=== PATIENT | male | born 1960 | race American Indian/Alaskan Native ===

== ENCOUNTER 2020-12-02 16:11 | Inpatient (IN) | payer OTHER ==
--- NOTE | 2020-12-02 16:47 | Event Note ---
ED Screening Note Date of service: 12/02/20 Time: 16:45 ED Screening Note: Patient presents to the ER today with complaints of low blood pressure. Patient states his blood pressure has been running in in the 80s 90s systolic. He states he noticed this about 3 weeks ago. He reports feeling short of breath, near syncopal episodes, nausea and decreased appetite. He denies any black or bloody stools. He denies any vomiting. He states that he had a couple episodes of watery stools. He denies any abdominal pain or chest pain. He denies any illicit drug use or alcohol abuse. He states that he went to an ER in [place] when the symptoms first started he states that they treated him for infection in his throat but he did not have any lab work or imaging done. His past medical history significant for diabetes and hypertension. He states he stopped taking his lisinopril about 1 week ago Patient noted to be hypertensive and tachycardic in triage This initial assessment/diagnostic orders/clinical plan/treatment(s) is/are subject to change based on patients health status, clinical progression and re- assessment by fellow clinical providers in the ED. Further treatment and workup at subsequent clinical providers discretion. Patient/guardian urged not to elope from the ED as their condition may be serious if not clinically assessed and managed. Initial orders include: Chest pain order set
[2020-12-02] MEDS ORDERED: SODIUM CHLORIDE 0.9% 1000 ML 1,000 ML IV ONE ×2 (16:59→18:35)
[2020-12-02 17:01] LABS: Basophils % (Auto) 0.3 % (0.0-1.8); Eosinophils % (Auto) 0.2 % (0.0-4.3); Hematocrit 43.9 % (35.5-45.6); Hemoglobin 14.7 gm/dl (11.8-15.2); Lymphocytes # (Auto) 1.5 K/mm3 (1.2-5.4); Lymphocytes % (Auto) 13.6 % (13.4-35.0); Mean Corpuscular HGB Conc 34 % (32-34); Mean Corpuscular Volume 84 fl (84-94); Monocytes # (Auto) 0.7 K/mm3 (0.0-0.8); Monocytes % (Auto) 6.1 % (0.0-7.3); Platelet Count 222 K/mm3 (140-440); Red Blood Count 5.23 M/mm3 (3.65-5.03); Red Cell Distribution Width 15.3 % (13.2-15.2)
[2020-12-02 17:25] LABS: Creatine Kinase MB 1.7 ng/mL (0.0-4.0)
[2020-12-02 17:27] LABS: Alanine Aminotransferase 7 units/L (7-56); Albumin 4.3 g/dL (3.9-5); Calcium 9.6 mg/dL (8.4-10.2); Hemolysis Index 97
[2020-12-02 17:38] LABS: BUN/Creatinine Ratio 16; Blood Urea Nitrogen 177 mg/dL (9-20)
[2020-12-02] MEDS ORDERED: ALBUTEROL 2.5 MG/3 ML NEBU IH ONE (18:34)
[2020-12-02] MEDS ORDERED: INSULIN REGULAR, HUMAN 100 UNITS/1 ML IV ONE (18:34)
[2020-12-02] MEDS ORDERED: DEXTROSE 50% IN WATER (25GM) 50 ML SYRINGE IV ONE (18:34)
[2020-12-02] MEDS ORDERED: CALCIUM CHLORIDE 1,000 MG/10 ML SYRINGE IV ONE (18:35)
[2020-12-02] MEDS ORDERED: SODIUM POLYSTYRENE 15 GM/60 ML ORAL LIQD PO ONE ×2 (18:35→23:53)
--- NOTE | 2020-12-02 18:49 | Emergency Department Report ---
ED General Adult HPI - General Chief complaint: Dizziness Stated complaint: HYPOTENSIVE Time Seen by Provider: 12/02/20 18:17 Source: patient Mode of arrival: Ambulatory Limitations: No Limitations - History of Present Illness Initial comments: 60-year-old male, history of gout, hypertension, type 2 diabetes, presents to ED with hypotension. Patient states he has had a diagnosis of hypertension for quite some time now. Patient states he was prescribed lisinopril for it. Patient reports approximately 1 month ago, he was diagnosed with type 2 diabetes and placed on Metformin. Patient states since his diagnosis, he has been eating less food, trying to figure out what is healthy and what is not. Patient also reports he has not been drinking much water. He states 3 weeks ago he was seen in urgent care because he was feeling weak. States his blood pressure was in the 90s at that time. Patient states he has been checking his blood pressure at home since then and his systolic BP has been running in the 80s and 90s. Patient states last week he stopped taking his lisinopril because his blood pressure was so low. He reports feeling weak and dizzy, but denies any syncopal episodes. He also states that he had his 1st appointment with a new PCP last week. States he had blood work done at that time, but is supposed to receive the results sometime this week. Patient reports a decrease in urine output. He denies any history of renal failure. Patient has a history of arthritis in the hip, but states he has not been abusing NSAIDs. He states he takes an occasional Aleve. Patient reports decrease in urine output last week or so. He denies any tobacco, alcohol, drug use. Patient received his 1st Pfizer COVID-19 vaccine 3 weeks ago. He has not received the 2nd dose yet. -: week(s) (3) Quality: other (Painless) Consistency: intermittent Improves with: none Worsens with: none Associated Symptoms: weakness. denies: chest pain, cough, fever/chills, headaches, shortness of breath, syncope - Related Data Allergies Allergy/AdvReac Type Severity Reaction Status Date / Time codeine Allergy Hives Verified 12/02/20 16:31 ED Review of Systems ROS: Stated complaint: HYPOTENSIVE Other details as noted in HPI Comment: All other systems reviewed and negative Constitutional: denies: chills, fever Respiratory: denies: cough, shortness of breath Cardiovascular: denies: chest pain Gastrointestinal: nausea. denies: abdominal pain, vomiting, diarrhea ED Past Medical Hx - Past Medical History Previous Medical History?: No - Surgical History Past Surgical History?: No ED Physical Exam - General Limitations: No Limitations General appearance: alert, in no apparent distress - Head Head exam: Present: atraumatic, normocephalic - Eye Eye exam: Present: normal appearance, EOMI - ENT ENT exam: Present: mucous membranes moist - Neck Neck exam: Present: normal inspection - Respiratory Respiratory exam: Present: normal lung sounds bilaterally. Absent: respiratory distress - Cardiovascular Cardiovascular Exam: Present: normal rhythm, tachycardia - GI/Abdominal GI/Abdominal exam: Present: soft. Absent: distended, tenderness - Extremities Exam Extremities exam: Present: normal inspection - Neurological Exam Neurological exam: Present: alert, oriented X3 - Psychiatric Psychiatric exam: Present: normal affect, normal mood - Skin Skin exam: Present: warm, dry, intact, normal color ED Course Vital Signs 12/02/20 12/02/20 12/02/20 16:33 18:26 18:31 Temperature 97.9 F Pulse Rate 122 H 96 H 98 H Pulse Rate [ Throughout] Respiratory 12 13 20 Rate Respiratory Rate [ Throughout] Blood Pressure 114/68 Blood Pressure 75/48 [Right] O2 Sat by Pulse 95 100 Oximetry 12/02/20 12/02/20 12/02/20 18:45 19:01 19:15 Temperature Pulse Rate 94 H 92 H 106 H Pulse Rate [ Throughout] Respiratory 20 18 18 Rate Respiratory Rate [ Throughout] Blood Pressure 125/74 137/76 143/82 Blood Pressure [Right] O2 Sat by Pulse 100 100 100 Oximetry 12/02/20 12/02/20 12/02/20 19:31 19:45 20:01 Temperature Pulse Rate 91 H 96 H 111 H Pulse Rate [ Throughout] Respiratory 16 22 21 Rate Respiratory Rate [ Throughout] Blood Pressure 153/75 155/71 154/76 Blood Pressure [Right] O2 Sat by Pulse 100 99 100 Oximetry 12/02/20 12/02/20 12/02/20 20:14 20:15 20:31 Temperature Pulse Rate 110 H 112 H Pulse Rate [ 111 H Throughout] Respiratory 15 15 Rate Respiratory 15 Rate [ Throughout] Blood Pressure 140/85 143/88 Blood Pressure [Right] O2 Sat by Pulse 100 100 Oximetry 12/02/20 20:45 Temperature Pulse Rate Pulse Rate [ Throughout] Respiratory 20 Rate Respiratory Rate [ Throughout] Blood Pressure 122/80 Blood Pressure [Right] O2 Sat by Pulse 100 Oximetry - Consultations Consultation #1: 12/02/20 19:[address] Whitt, will consult on patient. Recommends 1 amp of bicarb IV and initiating bicarb drip at [address] Whitt states we will hold off on emergent dialysis at this time and try hyperkalemia protocol along with bicarb drip to see if acidosis and hyperkalemia will improve. If not, patient will need dialysis. ED Medical Decision Making - Lab Data Result diagrams: 12/02/20 16:41 12/02/20 22:52 - EKG Data -: EKG Interpreted by Me EKG shows normal: sinus rhythm, axis, intervals, QRS complexes, ST-T waves Rate: normal - EKG Data Interpretation: no acute changes - Radiology Data Radiology results: report reviewed, image reviewed - Medical Decision Making 60-year-old male presents ED with hypotension and new onset renal failure. Patient has a bicarb of 8 and also potassium of 8. BUN and creatinine are 177 and 10. Patient given 1 L bolus, with improvement of blood pressure from systolic in the 70s to systolic in the 110s. An additional 1 L bolus has been ordered. Patient has also been given insulin, D50, calcium gluconate, albuterol, Kayexalate for treatment of his hyperkalemia. After speaking with glass forming crew member, patient given 1 amp of bicarb and initiated on a bicarb drip. Patient will be admitted by hospitalist, Dr. Cevallos, for further management. - Differential Diagnosis Dehydration, renal failure, infection Critical Care Time: Yes Critical care time in (mins) excluding proc time.: 35 Critical care attestation.: If time is entered above; I have spent that time in minutes in the direct care of this critically ill patient, excluding procedure time. Critical Care Time: 35 min ED Disposition Clinical Impression: Acute renal failure, Hyperkalemia Hypotension Qualifiers: Hypotension type: other hypotension type Qualified Code(s): I95.89 - Other hypotension Disposition: -09 OP ADMIT IP TO THIS HOSP Is pt being admited?: Yes Condition: Stable Time of Disposition: 19:19
[2020-12-02] MEDS ORDERED: SODIUM BICARB 8.4% 50 MEQ/50 ML SYRINGE IV ONE (18:59)
[2020-12-02] MEDS ORDERED: CALCIUM GLUCONATE 1,000 MG in SODIUM CHLORIDE 0.9% 100 ML IV ONE (19:00)
[2020-12-02] MEDS ORDERED: ONDANSETRON 4 MG/2 ML INJ IV PRN (19:10)
[2020-12-02] MEDS ORDERED: ACETAMINOPHEN 325 MG TAB PO PRN (19:10)
[2020-12-02] MEDS ORDERED: ALBUTEROL 2.5 MG/3 ML NEBU IH PRN (19:10)
--- NOTE | 2020-12-02 19:13 | History and Physical Report ---
History of Present Illness Chief complaint: I feel weak and dizzy History of present illness: 60 YO Male with HTN, DM, Gout presents to ED for evaluation. Patient reports "I feel weak and dizzy". Patient states that he has experienced generalized weakness, dizziness over the past 2 weeks with intermittently worsening symptoms over the same timeframe. Patient was seen and evaluated by his primary care physician last week and was found to have hypotension. Patient acknowledges persistent symptoms after discontinuing antihypertensive medication. Patient transported to [facility] via private vehicle for further care and evaluation of the aforementioned symptoms. The patient was seen and evaluated in the emergency d [facility]. All lab and imaging studies reviewed. Patient found to have hypotension with a blood pressure of 75/48 in the emergency department. Patient also found to have end-stage renal disease, metabolic acidosis, as well as EKG changes secondary to hyperkalemia. Patient admitted to telemetry for further evaluation and monitoring. Nephrology team consulted in ED. Dialysis as per renal team. Patient denies fever, chills, chest pain, palpitation, productive cough, skin rash, recent ill contacts, or known exposure to COVID-19. Patient received first dose of Pfizer vaccine 3 weeks ago and is pending administration of second dose. No prior admission for review. No medication listed at time of admission for reconciliation. Past History Past Medical History: diabetes, ESRD, hypertension Past Surgical History: No surgical history, Other (reviewed) Social history: single. denies: smoking, alcohol abuse, prescription drug abuse Family history: diabetes, hypertension Medications and Allergies Allergies Allergy/AdvReac Type Severity Reaction Status Date / Time codeine Allergy Hives Verified 12/02/20 16:31 Active Meds: Active Medications Acetaminophen (Acetaminophen 325 Mg Tab) 650 mg PO Q4H PRN PRN Reason: Pain MILD(1-3)/Fever >100.5/RAMIREZ Albuterol (Albuterol 2.5 Mg/3 Ml Nebu) 2.5 mg IH Q4HRT PRN PRN Reason: Shortness Of Breath Sodium Chloride (Nacl 0.9% 1000 Ml) 1,000 mls @ 999 mls/hr IV BOLUS ONE Stop: 12/02/20 19:35 Sodium Bicarbonate 150 meq/ (Dextrose) 1,150 mls @ 100 mls/hr IV ONCE ONE Stop: 12/03/20 07:29 Ondansetron HCl (Ondansetron 4 Mg/2 Ml Inj) 4 mg IV Q8H PRN PRN Reason: Nausea And Vomiting Sodium Chloride (Sodium Chloride 0.9% 10 Ml Flush Syringe) 10 ml IV BID YOLANDA Sodium Chloride (Sodium Chloride 0.9% 10 Ml Flush Syringe) 10 ml IV PRN PRN PRN Reason: LINE FLUSH Review of Systems Constitutional: no weight loss, no weight gain, no fever, no chills Ears, nose, mouth and throat: no ear pain, no decreased hearing, no nose pain, no nasal congestion Cardiovascular: no chest pain, no orthopnea, no palpitations, no lightheadedness Respiratory: no cough, no excessive sputum, no hemoptysis Gastrointestinal: no abdominal pain, no nausea, no vomiting, no diarrhea, no constipation, no change in bowel habits Genitourinary Male: no hematuria, no flank pain, no urinary frequency, no urinary hesitancy, no nocturia Rectal: no pain, no incontinence, no bleeding Musculoskeletal: no neck stiffness, no shooting arm pain, no arm numbness/tingling, no shooting leg pain, no leg numbness/tingling Integumentary: no rash, no pruritis, no redness, no sores, no wounds, no jaundice Neurological: no transient paralysis, no weakness, no numbness, no tingling Psychiatric: no anxiety, no memory loss, no hypersomnia, no change in libido, no suicidal ideation Endocrine: no cold intolerance, no polyphagia, no polydipsia, no polyuria Hematologic/Lymphatic: no easy bruising, no easy bleeding, no lymphedema Allergic/Immunologic: no allergic rhinitis, no wheezing Exam - Constitutional Vitals: Temp Pulse Resp BP Pulse Ox 97.9 F 92 H 18 137/76 100 12/02/20 16:33 12/02/20 19:01 12/02/20 19:01 12/02/20 19:01 12/02/20 19:01 General appearance: Present: mild distress - EENT Eyes: Present: PERRL ENT: hearing intact, clear oral mucosa - Neck Neck: Present: supple, normal ROM - Respiratory Respiratory effort: normal Respiratory: bilateral: CTA - Cardiovascular Heart Sounds: Present: S1 & S2. Absent: rub, click - Extremities Extremities: pulses symmetrical, No edema Peripheral Pulses: within normal limits - Abdominal General gastrointestinal: Present: soft, non-tender, non-distended, normal bowel sounds Male genitourinary: Present: normal - Integumentary Integumentary: Present: clear, warm, dry - Musculoskeletal Musculoskeletal: gait normal, strength equal bilaterally - Psychiatric Psychiatric: appropriate mood/affect, intact judgment & insight - Neurologic Neurologic: CNII-XII intact, moves all extremities HEART Score - HEART Score Troponin: Troponin T < 0.010 ng/mL (0.00-0.029) 12/02/20 16:41 Results - Labs CBC & Chem 7: 12/02/20 16:41 12/02/20 16:41 Labs: Abnormal lab results 12/02/20 12/02/20 Range/Units 16:41 16:41 RBC 5.23 H (3.65-5.03) M/mm3 RDW 15.3 H (13.2-15.2) % Seg Neutrophils % 79.8 H (40.0-70.0) % Seg Neutrophils # 8.6 H (1.8-7.7) K/mm3 Sodium 133 L (137-145) mmol/L Potassium 8.0 H* (3.6-5.0) mmol/L Chloride 95.9 L (98-107) mmol/L Carbon Dioxide 8 L* (22-30) mmol/L BUN 177 H (9-20) mg/dL Creatinine 10.9 H (0.8-1.3) mg/dL Glucose 161 H (75-100) mg/dL Total Creatine Kinase 50 L (55-170) units/L Assessment and Plan - Patient Problems (1) ESRD (end stage renal disease) Current Visit: Yes Status: Acute Plan to address problem: Nephrology consulted in ED, monitor uop q shift, avoid nephrotoxic agents, dialysis as per renal team. Patient may require placement of Vas-Cath pending nephrology evaluation and assessment for need for dialysis. (2) Acidosis Current Visit: Yes Status: Acute Plan to address problem: BMP, repeat bmp in am, dialysis as per renal team. (3) Hypotension Current Visit: Yes Status: Acute Qualifiers: Hypotension type: other hypotension type Qualified Code(s): I95.89 - Other hypotension Plan to address problem: Monitor BP q shift, continue medical management. IVF resuscitation therapy as clinically indicated. (4) EKG, abnormal Current Visit: Yes Status: Acute Plan to address problem: remote telemetry monitoring, repeat ekg (5) Hyperkalemia Current Visit: Yes Status: Acute Plan to address problem: Calcium gluconate, insulin, D50, Kayexalate, BMP, repeat BMP in a.m. (6) Diabetes Current Visit: Yes Status: Acute Plan to address problem: Consistent carbohydrate diet, Accu-Chek, hypoglycemia protocol, sliding scale insulin therapy, (7) DVT prophylaxis Current Visit: Yes Status: Acute Plan to address problem: SCD to bilateral lower extremities while in bed, patient is ambulatory
--- NOTE | 2020-12-02 19:26 | XRay Report ---
CHEST 1 VIEW INDICATION: GEN WEAKNESS COMPARISON: FINDINGS: SUPPORT DEVICES: None. HEART / MEDIASTINUM: No significant abnormality. LUNGS / PLEURA: No significant pulmonary or pleural abnormality. No pneumothorax. ADDITIONAL FINDINGS: IMPRESSION: 1. No acute cardiopulmonary disease Signer Name: Harrison Khan MD Signed: 12/02/2020 7:21 PM Workstation Name: [id number]
[2020-12-02] MEDS: SODIUM BICARBONATE 150 MEQ in DEXTROSE 5% IN WATER 1,000 ML IV ONE ×2 (19:51→19:52)
[2020-12-03] MEDS ORDERED: SODIUM CHLORIDE 0.9% 1000 ML 1,000 ML IV ONE (04:40)
[2020-12-03 06:07] LABS: Calcium 9.2 mg/dL (8.4-10.2)
[2020-12-03] MEDS ORDERED: SODIUM CHLORIDE 0.9% 1000 ML 1,000 ML ONE ×2 (10:09→10:13)
--- NOTE | 2020-12-03 10:50 | Consultation ---
History of Present Illness - Reason for Consult Consult date: 12/03/20 acute renal failure Requesting physician: EVA COOLEY - History of Present Illness 60-year-old male who is not known to me with a history of hypertension who was on lisinopril. Patient did not have health insurance and was not following up regularly. He does not know if he has any kidney disease before now. He was recently diagnosed with type 2 diabetes mellitus when he had a screening at a [facility]. Patient was started on Metformin but he since he started taking it he noticed a decrease in his appetite and recently blood pressure decrease. Patient felt weak and had episodes of dizziness. Systolic blood pressure was in the 80s to the 90s. He denies any syncopal episode. He received his first Pfizer COVID-19 vaccine 3 weeks ago and he believes his symptoms worsen again. Patient went to the urgent care and was treated for sinusitis unfortunately continues to have hypotension with dizziness and so he finally came in came to the emergency room for further evaluation. In the ER his blood pressure was 75/48 mmHg. BUN/creatinine were 177/10.9 mg/dL with potassium of 8 mmol/L and bicarbonate was low at 8 mmol/L. He denies any recent exposure to radiocontrast and he did use Aleve occasionally. Denies chronic NSAID use. 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 denies: smoking, alcohol abuse, prescription drug abuse Family history: cancer (Father of lung cancer age 53.), diabetes, hypertension, other (Mother had multiple sclerosis and at age 41.) Medications and Allergies Allergies Allergy/AdvReac Type Severity Reaction Status Date / Time codeine Allergy Hives Verified 12/02/20 16:31 Active Meds: Active Medications Acetaminophen (Acetaminophen 325 Mg Tab) 650 mg PO Q4H PRN PRN Reason: Pain MILD(1-3)/Fever >100.5/RAMIREZ Albuterol (Albuterol 2.5 Mg/3 Ml Nebu) 2.5 mg IH Q4H PRN PRN Reason: Shortness Of Breath Sodium Chloride (Nacl 0.9% 1000 Ml) 1,000 mls @ 150 mls/hr IV DIRECT YOLANDA Ondansetron HCl (Ondansetron 4 Mg/2 Ml Inj) 4 mg IV Q8H PRN PRN Reason: Nausea And Vomiting Sodium Chloride (Sodium Chloride 0.9% 10 Ml Flush Syringe) 10 ml IV BID [facility] Last Admin: 12/02/20 22:15 Dose: 10 ml Documented by: Sodium Chloride (Sodium Chloride 0.9% 10 Ml Flush Syringe) 10 ml IV PRN PRN PRN Reason: LINE FLUSH Review of Systems All systems: negative (Constitutional: no fever or chills. No anorexia or weight loss. HEENT: No sore throat shortnesadmits to sinus drainage no hearing or vision impairment . Cardiovascular: No chest pain, admits to SOB, palpitations, lower extremity swelling or dizziness. Respiratory: No cough, sputum, admits to SOB, h) Gastrointestinal: nausea, diarrhea, no abdominal pain, no vomiting, no constipation, no hematemesis Genitourinary Male: no dysuria, no urinary frequency, no nocturia (Noticed a decrease in urine output over the last week or so) Musculoskeletal: other (Right hip pain and it was), no low back pain, no morning stiffness, no muscle weakness Integumentary: no pruritis, no sores, no lesions Neurological: headaches, no parathesias, no numbness, no tingling, no seizures Psychiatric: no anxiety, no depression Endocrine: no cold intolerance, no heat intolerance Hematologic/Lymphatic: no easy bruising, no easy bleeding Exam - Vital Signs Vital signs: Vital Signs Temp Pulse Resp BP Pulse Ox 97.9 F 122 H 12 75/48 95 12/02/20 16:33 12/02/20 16:33 12/02/20 16:33 12/02/20 16:33 12/02/20 16:33 - Physical Exam Narrative exam: Middle-aged -[place] male lying in bed in no acute distress HEENT: NCAT, pink oral mucous membrane Neck: Supple, no venous distention CVS: S1S2 RRR with no murmur, rub or gallop Chest: Clear to auscultation Abdomen: Protuberant, soft, nontender, no organomegaly, bowel sounds are present Extremities: No edema Genitourinary deferred Skin warm and dry Neuro: Awake, alert no focal deficits Results - Lab Results 12/02/20 16:41 12/03/20 04:46 Most recent lab results Calcium 9.2 mg/dL (8.4-10.2) 12/03/20 04:46 Assessment and Plan - Patient Problems (1) Acute renal failure Current Visit: Yes Status: Acute Plan to address problem: Acute kidney injury prerenal azotemia versus acute tubular necrosis secondary to hypotension. It is unclear if patient has baseline chronic kidney disease presumably secondary to hypotension. Patient has not been getting regular medical care due to insurance issues. Kidney indices are just a little bit better. Will continue intravenous fluids. Get renal bladder ultrasound. Will get urine studies. Check a few serologies. If patient has significant proteinuria, will do a more aggressive work-up for glomerulonephritis. If kidney function does not continue to improve, will need to start dialysis. I discussed with the patient and he agrees with this plan (2) Hyperkalemia Current Visit: Yes Status: Acute Plan to address problem: Aggressive medical management of hyperkalemia improving. Repeat potassium (3) Hypotension Current Visit: Yes Status: Acute Plan to address problem: SHOBHA inhibitor was stopped more than a week ago. Blood pressure still low. Continue volume resuscitation. We will get a 2D echo and check TSH and cortisol level. Further management depending on the course. (4) Metabolic acidosis Current Visit: Yes Status: Acute Plan to address problem: Uremic acidosis. Continue IV fluids with sodium bicarbonate (5) Type 2 diabetes mellitus Current Visit: Yes Status: Acute Plan to address problem: Blood sugar management by primary attending.
[2020-12-03] MEDS ORDERED: SODIUM CHLORIDE 0.9% 1000 ML 1,000 ML IV SCH (11:00)
--- NOTE | 2020-12-03 11:14 | Ultrasound Report ---
ULTRASOUND RENAL INDICATION / CLINICAL INFORMATION: Acute kidney injury. COMPARISON: None available. FINDINGS: RIGHT KIDNEY: Length = 11.3 cm. [normal > 9 cm] - Parenchymal Thickness = 10.8 cm. [normal > 1.5 cm] - Echogenicity: Normal. - Hydronephrosis: None. - Cyst or mass: No significant abnormality. - Stones: None seen. LEFT KIDNEY: Length = 10.6 cm. [normal > 9 cm] - Parenchymal Thickness = 2.0 cm. [normal > 1.5 cm] - Echogenicity: Normal. - Hydronephrosis: None. - Cyst or mass: No significant abnormality. - Stones: None seen. URINARY BLADDER: No significant abnormality. FREE FLUID: None. ADDITIONAL FINDINGS: None. IMPRESSION: No significant abnormality. Signer Name: Wilman Parker Jr, MD Signed: 12/03/2020 11:10 AM Workstation Name: [id number]
--- NOTE | 2020-12-03 11:27 | Progress Note ---
Assessment and Plan Assessment and plan: Acute kidney injury It is unclear if he had undiagnosed CKD Nephrology consulted in ED, monitor uop q shift, avoid nephrotoxic agents, Patient evaluated by Operations Plant Attendant Cr improving now 6.2 from 10.9 on admission Metabolic Acidosis Now resoloved. CO2 was 12 on admission Hypotension Monitor BP q shift, continue medical management. IVF resuscitation therapy as clinically indicated. EKG, abnormal remote telemetry monitoring, repeat ekg Hyperkalemia Was given Calcium gluconate, insulin, D50, Kayexalate, Now resolved Repeat BMP in a.m. Diabetes mellitus type 2 Consistent carbohydrate diet, Accu-Chek, hypoglycemia protocol, sliding scale insulin therapy, DVT prophylaxis SCD to bilateral lower extremities while in bed, patient is ambulatory History Interval history: Weakness and diziness, now improved Hospitalist Physical - Physical exam Narrative exam: Gen: Not in acute distress, lying in bed HEENT: Normochephalic, atraumatic Neck:supple, No JVD Lungs:Clear to auscultation bilaterally, no rales, no wheeze Heart:S1 and S2 reg, no murmurs, rubs or gallop Abd: soft, non tender, non distended, normal bowel sounds Ext: No edema, no clubbing, no cyanosis Neuro:Awake,alert,oriented X 3, moves all ext, no focal neurological signs - Constitutional Vitals: Temp Pulse Resp BP Pulse Ox 97.7 F 89 20 91/57 99 12/03/20 06:30 12/03/20 06:30 12/03/20 06:30 12/03/20 06:30 12/03/20 09:19 HEART Score - HEART Score Troponin: Troponin T < 0.010 ng/mL (0.00-0.029) 12/02/20 19:12 Results - Labs CBC & Chem 7: 12/02/20 16:41 12/03/20 13:53 Labs: Laboratory Last Values WBC 10.7 K/mm3 (4.5-11.0) 12/02/20 16:41 RBC 5.23 M/mm3 (3.65-5.03) H 12/02/20 16:41 Hgb 14.7 gm/dl (11.8-15.2) 12/02/20 16:41 Hct 43.9 % (35.5-45.6) 12/02/20 16:41 MCV 84 fl (84-94) 12/02/20 16:41 MCH 28 pg (28-32) 12/02/20 16:41 MCHC 34 % (32-34) 12/02/20 16:41 RDW 15.3 % (13.2-15.2) H 12/02/20 16:41 Plt Count 222 K/mm3 (140-440) 12/02/20 16:41 Lymph % (Auto) 13.6 % (13.4-35.0) 12/02/20 16:41 [place] % (Auto) 6.1 % (0.0-7.3) 12/02/20 16:41 Eos % (Auto) 0.2 % (0.0-4.3) 12/02/20 16:41 Baso % (Auto) 0.3 % (0.0-1.8) 12/02/20 16:41 Lymph # (Auto) 1.5 K/mm3 (1.2-5.4) 12/02/20 16:41 [place] # (Auto) 0.7 K/mm3 (0.0-0.8) 12/02/20 16:41 Eos # (Auto) 0.0 K/mm3 (0.0-0.4) 12/02/20 16:41 Baso # (Auto) 0.0 K/mm3 (0.0-0.1) 12/02/20 16:41 Seg Neutrophils % 79.8 % (40.0-70.0) H 12/02/20 16:41 Seg Neutrophils # 8.6 K/mm3 (1.8-7.7) H 12/02/20 16:41 PT 13.8 Sec. (12.2-14.9) 12/02/20 16:41 INR 1.00 (0.87-1.13) 12/02/20 16:41 APTT 26.2 Sec. (24.2-36.6) 12/02/20 17:19 Sodium 142 mmol/L (137-145) D 12/03/20 04:46 Potassium 5.7 mmol/L (3.6-5.0) H 12/03/20 04:46 Chloride 103.1 mmol/L (98-107) 12/03/20 04:46 Carbon Dioxide 16 mmol/L (22-30) L D 12/03/20 04:46 Anion Gap 29 mmol/L 12/03/20 04:46 BUN 170 mg/dL (9-20) H 12/03/20 04:46 Creatinine 8.5 mg/dL (0.8-1.3) H 12/03/20 04:46 Estimated GFR 8 ml/min 12/03/20 04:46 BUN/Creatinine Ratio 20 % 12/03/20 04:46 Glucose 137 mg/dL (75-100) H 12/03/20 04:46 POC Glucose 115 mg/dL (70-105) H 12/03/20 08:03 Calcium 9.2 mg/dL (8.4-10.2) 12/03/20 04:46 Total Bilirubin 0.30 mg/dL (0.1-1.2) 12/02/20 16:41 AST 10 units/L (5-40) 12/02/20 16:41 ALT 7 units/L (7-56) 12/02/20 16:41 Alkaline Phosphatase 50 units/L (35-129) 12/02/20 16:41 Total Creatine Kinase 50 units/L (55-170) L 12/02/20 16:41 CK-MB (CK-2) 1.7 ng/mL (0.0-4.0) 12/02/20 16:41 CK-MB (CK-2) Rel Index 3.4 (0-4) 12/02/20 16:41 Troponin T < 0.010 ng/mL (0.00-0.029) 12/02/20 19:12 Total Protein 7.9 g/dL (6.3-8.2) 12/02/20 16:41 Albumin 4.3 g/dL (3.9-5) 12/02/20 16:41 Albumin/Globulin Ratio 1.2 % 12/02/20 16:41 Blue/IV: Voiding Method Toilet Active Medications - Current Medications Current Medications: Generic Name Dose Route Start Last Admin Trade Name Freq PRN Reason Stop Dose Admin Acetaminophen 650 mg 12/02/20 19:10 Acetaminophen 325 Mg Tab PO Q4H PRN Pain MILD(1-3)/Fever >100.5/RAMIREZ Albuterol 2.5 mg 12/02/20 19:10 Albuterol 2.5 Mg/3 Ml Nebu IH Q4H PRN Shortness Of Breath Sodium Chloride 1,000 mls @ 150 mls/hr 12/03/20 11:00 Nacl 0.9% 1000 Ml IV DIRECT YOLANDA Sodium Bicarbonate 100 meq/ 1,100 mls @ 100 mls/hr 12/03/20 11:30 Sterile Water IV DIRECT YOLANDA Ondansetron HCl 4 mg 12/02/20 19:10 Ondansetron 4 Mg/2 Ml Inj IV Q8H PRN Nausea And Vomiting Sodium Chloride 10 ml 12/02/20 22:00 12/03/20 11:02 Sodium Chloride 0.9% 10 Ml Flush Syringe IV Not Given BID YOLANDA Sodium Chloride 10 ml 12/02/20 19:10 Sodium Chloride 0.9% 10 Ml Flush Syringe IV PRN PRN LINE FLUSH
[2020-12-03 12:20] LABS: Bilirubin,Urine NEG (Negative); Blood,Urine SM (Negative); Color,Urine Straw (Yellow); Mucus,Urine FEW /HPF; Protein,Urine <15 mg/dL mg/dL (Negative); Urobilinogen,Urine < 2.0 mg/dL (<2.0)
[2020-12-03 14:40] LABS: Calcium 8.5 mg/dL (8.4-10.2)
[2020-12-03 15:31] LABS: Creatinine,Urine 107.2 mg/dL (0.1-20.0)
[2020-12-03] MEDS: SODIUM BICARBONATE 100 MEQ in WATER FOR INJECTION (PF) 1,000 ML IV SCH (16:36)
[2020-12-03] MEDS: HEPARIN 5,000 UNIT/1 ML VIAL SUB-Q SCH (21:34)
[2020-12-04 05:04] LABS: Hemoglobin 12.2 gm/dl (11.8-15.2); Mean Corpuscular HGB Conc 34 % (32-34); Mean Corpuscular Volume 82 fl (84-94); Platelet Count 155 K/mm3 (140-440); Red Blood Count 4.39 M/mm3 (3.65-5.03); Red Cell Distribution Width 14.7 % (13.2-15.2)
[2020-12-04 05:11] LABS: Hematocrit 36.1 % (35.5-45.6)
[2020-12-04 05:28] LABS: Calcium 8.9 mg/dL (8.4-10.2)
[2020-12-04] MEDS: SODIUM BICARBONATE 100 MEQ in WATER FOR INJECTION (PF) 1,000 ML IV SCH (06:13)
--- NOTE | 2020-12-04 08:56 | Progress Note ---
Assessment and Plan Assessment and plan: Acute kidney injury It is unclear if he had undiagnosed CKD Nephrology consulted in ED, monitor uop q shift, avoid nephrotoxic agents, Patient evaluated by Fabrication Welder Cr improving now 3.7 from 10.9 on admission Metabolic Acidosis Now resolved. CO2 was 12 on admission Hypotension Monitor BP q shift, continue medical management. IVF resuscitation therapy as clinically indicated. EKG, abnormal remote telemetry monitoring, repeat ekg Hyperkalemia Was given Calcium gluconate, insulin, D50, Kayexalate, Now resolved Repeat BMP in a.m. Diabetes mellitus type 2 Consistent carbohydrate diet, Accu-Chek, hypoglycemia protocol, sliding scale insulin therapy, DVT prophylaxis SCD to bilateral lower extremities while in bed, patient is ambulatory 12/04/20 Patient initially presented with dizziness, generalized weakness. He was diagnosed with acute kidney injury with Cr 10.9 and severe hyperkalemia with Potassium of 8.0. After medical management, he is much better with Cr 3.7 and Potassium now normal at 4.8. Continue iv fluids. Hopefully discharge home in few days. I discussed with Nephrology. History Interval history: Weakness and diziness, now improved He feels much better No SOB Hospitalist Physical - Physical exam Narrative exam: Gen: Not in acute distress, lying in bed HEENT: Normochephalic, atraumatic Neck:supple, No JVD Lungs:Clear to auscultation bilaterally, no rales, no wheeze Heart:S1 and S2 reg, no murmurs, rubs or gallop Abd: soft, non tender, non distended, normal bowel sounds Ext: No edema, no clubbing, no cyanosis Neuro:Awake,alert,oriented X 3, moves all ext, no focal neurological signs - Constitutional Vitals: Temp Pulse Resp BP Pulse Ox 99.2 F 74 18 109/69 99 12/04/20 07:31 12/04/20 08:03 12/04/20 07:31 12/04/20 07:31 12/04/20 07:31 HEART Score - HEART Score Troponin: Troponin T < 0.010 ng/mL (0.00-0.029) 12/02/20 19:12 Results - Labs CBC & Chem 7: 12/04/20 04:19 12/04/20 04:19 Labs: Laboratory Last Values WBC 8.2 K/mm3 (4.5-11.0) 12/04/20 04:19 RBC 4.39 M/mm3 (3.65-5.03) 12/04/20 04:19 Hgb 12.2 gm/dl (11.8-15.2) 12/04/20 04:19 Hct 36.1 % (35.5-45.6) D 12/04/20 04:19 MCV 82 fl (84-94) L 12/04/20 04:19 MCH 28 pg (28-32) 12/04/20 04:19 MCHC 34 % (32-34) 12/04/20 04:19 RDW 14.7 % (13.2-15.2) 12/04/20 04:19 Plt Count 155 K/mm3 (140-440) 12/04/20 04:19 Lymph % (Auto) 13.6 % (13.4-35.0) 12/02/20 16:41 [place] % (Auto) 6.1 % (0.0-7.3) 12/02/20 16:41 Eos % (Auto) 0.2 % (0.0-4.3) 12/02/20 16:41 Baso % (Auto) 0.3 % (0.0-1.8) 12/02/20 16:41 Lymph # (Auto) 1.5 K/mm3 (1.2-5.4) 12/02/20 16:41 [place] # (Auto) 0.7 K/mm3 (0.0-0.8) 12/02/20 16:41 Eos # (Auto) 0.0 K/mm3 (0.0-0.4) 12/02/20 16:41 Baso # (Auto) 0.0 K/mm3 (0.0-0.1) 12/02/20 16:41 Seg Neutrophils % 79.8 % (40.0-70.0) H 12/02/20 16:41 Seg Neutrophils # 8.6 K/mm3 (1.8-7.7) H 12/02/20 16:41 PT 13.8 Sec. (12.2-14.9) 12/02/20 16:41 INR 1.00 (0.87-1.13) 12/02/20 16:41 APTT 26.2 Sec. (24.2-36.6) 12/02/20 17:19 Sodium 146 mmol/L (137-145) H 12/04/20 04:19 Potassium 4.8 mmol/L (3.6-5.0) 12/04/20 04:19 Chloride 108.1 mmol/L (98-107) H 12/04/20 04:19 Carbon Dioxide 26 mmol/L (22-30) 12/04/20 04:19 Anion Gap 17 mmol/L 12/04/20 04:19 BUN 106 mg/dL (9-20) H 12/04/20 04:19 Creatinine 3.7 mg/dL (0.8-1.3) H 12/04/20 04:19 Estimated GFR 21 ml/min 12/04/20 04:19 BUN/Creatinine Ratio 29 % 12/04/20 04:19 Glucose 91 mg/dL (75-100) 12/04/20 04:19 POC Glucose 100 mg/dL (70-105) 12/04/20 07:33 Calcium 8.9 mg/dL (8.4-10.2) 12/04/20 04:19 Phosphorus 3.80 mg/dL (2.5-4.5) 12/04/20 04:19 Total Bilirubin 0.30 mg/dL (0.1-1.2) 12/02/20 16:41 AST 10 units/L (5-40) 12/02/20 16:41 ALT 7 units/L (7-56) 12/02/20 16:41 Alkaline Phosphatase 50 units/L (35-129) 12/02/20 16:41 Total Creatine Kinase 50 units/L (55-170) L 12/02/20 16:41 CK-MB (CK-2) 1.7 ng/mL (0.0-4.0) 12/02/20 16:41 CK-MB (CK-2) Rel Index 3.4 (0-4) 12/02/20 16:41 Troponin T < 0.010 ng/mL (0.00-0.029) 12/02/20 19:12 Total Protein 7.9 g/dL (6.3-8.2) 12/02/20 16:41 Albumin 4.3 g/dL (3.9-5) 12/02/20 16:41 Albumin/Globulin Ratio 1.2 % 12/02/20 16:41 PTH Intact 331.1 pg/mL (15-65) H 12/04/20 04:19 Urine Color Straw (Yellow) 12/03/20 12:10 Urine Turbidity Clear (Clear) 12/03/20 12:10 Urine pH 5.0 (5.0-7.0) 12/03/20 12:10 Ur Specific [place] 1.012 (1.003-1.030) 12/03/20 12:10 Urine Protein <15 mg/dl mg/dL (Negative) 12/03/20 12:10 Urine Glucose (UA) 50 mg/dL (Negative) 12/03/20 12:10 Urine Ketones Neg mg/dL (Negative) 12/03/20 12:10 Urine Blood Sm (Negative) 12/03/20 12:10 Urine Nitrite Neg (Negative) 12/03/20 12:10 Urine Bilirubin Neg (Negative) 12/03/20 12:10 Urine Urobilinogen < 2.0 mg/dL (<2.0) 12/03/20 12:10 Ur Leukocyte Esterase Neg (Negative) 12/03/20 12:10 Urine WBC (Auto) 1.0 /HPF (0.0-6.0) 12/03/20 12:10 Urine RBC (Auto) 1.0 /HPF (0.0-6.0) 12/03/20 12:10 Urine Mucus Few /HPF 12/03/20 12:10 Urine Creatinine 107.2 mg/dL (0.1-20.0) H 12/03/20 12:10 Urine Sodium 57 mmol/L 12/03/20 12:10 Urine Total Protein 8 mg/dL (5-11.8) 12/03/20 12:10 Hep Bs Antigen Non-reactive (Negative) 12/04/20 04:19 Hepatitis C Antibody Non-reactive (NonReactive) 12/04/20 04:19 Blue/IV: Voiding Method Toilet Active Medications - Current Medications Current Medications: Generic Name Dose Route Start Last Admin Trade Name Freq PRN Reason Stop Dose Admin Acetaminophen 650 mg 12/02/20 19:10 Acetaminophen 325 Mg Tab PO Q4H PRN Pain MILD(1-3)/Fever >100.5/RAMIREZ Albuterol 2.5 mg 12/02/20 19:10 Albuterol 2.5 Mg/3 Ml Nebu IH Q4H PRN Shortness Of Breath Heparin Sodium (Porcine) 5,000 unit 12/03/20 22:00 12/03/20 21:34 Heparin 5,000 Unit/1 Ml Vial SUB-Q 5,000 unit Q12HR YOLANDA Administration Sodium Bicarbonate 100 meq/ 1,100 mls @ 100 mls/hr 12/03/20 11:30 12/04/20 06:13 Sterile Water IV 100 mls/hr DIRECT YOLANDA Administration Ondansetron HCl 4 mg 12/02/20 19:10 Ondansetron 4 Mg/2 Ml Inj IV Q8H PRN Nausea And Vomiting Sodium Chloride 10 ml 12/02/20 22:00 12/03/20 21:34 Sodium Chloride 0.9% 10 Ml Flush Syringe IV 10 ml BID YOLANDA Administration Sodium Chloride 10 ml 12/02/20 19:10 Sodium Chloride 0.9% 10 Ml Flush Syringe IV PRN PRN LINE FLUSH
--- NOTE | 2020-12-04 10:27 | Progress Note ---
Assessment and Plan - Patient Problems (1) Acute renal failure Current Visit: Yes Status: Acute Plan to address problem: Acute kidney injury prerenal azotemia versus acute tubular necrosis secondary to hypotension. It is unclear if patient has baseline chronic kidney disease presumably secondary to hypotension. Patient has not been getting regular medical care due to insurance issues. Kidney indices are improving. No indication for dialysis. Hopefully kidney function keeps improving with current treatment. Follow-up electrolytes and renal function. I discussed with the patient and he agrees with this plan (2) Hyperkalemia Current Visit: Yes Status: Acute Plan to address problem: Resolved with aggressive medical management of hyperkalemia (3) Hypotension Current Visit: Yes Status: Acute Plan to address problem: SHOBHA inhibitor was stopped more than a week prior to hospitalization. Blood pressure was still low on presentation. Continue volume repletion. Further management depending on the course. (4) Metabolic acidosis Current Visit: Yes Status: Acute Plan to address problem: Uremic acidosis. Continue IV fluids with sodium bicarbonate (5) Type 2 diabetes mellitus Current Visit: Yes Status: Acute Plan to address problem: Blood sugar management by primary attending. Subjective Date of service: 12/04/20 Principal diagnosis: Acute kidney injury, hyperkalemia, metabolic acidosis Interval history: Patient seen lying in bed. He has no complaints this morning. No chest pain, shortness of breath, nausea or vomiting. Objective - Exam Narrative Exam: Middle-aged -[place] male lying in bed in no acute distress HEENT: NCAT, pink oral mucous membrane Neck: Supple, no venous distention CVS: S1S2 RRR with no murmur, rub or gallop Chest: Clear to auscultation Abdomen: Protuberant, soft, nontender, no organomegaly, bowel sounds are present Extremities: No edema Genitourinary deferred Skin warm and dry Neuro: Awake, alert no focal deficits - Vital Signs Vital signs: Vital Signs - 12hr 12/03/20 12/04/20 12/04/20 23:20 04:17 06:00 Temperature 98 F 97.7 F Pulse Rate 76 76 74 Respiratory 18 18 Rate Blood Pressure Blood Pressure 124/78 116/75 [Right] O2 Sat by Pulse 100 98 Oximetry 12/04/20 12/04/20 07:31 08:03 Temperature 99.2 F Pulse Rate 75 74 Respiratory 18 Rate Blood Pressure 109/69 Blood Pressure [Right] O2 Sat by Pulse 99 Oximetry - Lab 12/04/20 04:19 12/04/20 04:19 Most recent lab results Calcium 8.9 mg/dL (8.4-10.2) 12/04/20 04:19 Phosphorus 3.80 mg/dL (2.5-4.5) 12/04/20 04:19 Urine Creatinine 107.2 mg/dL (0.1-20.0) H 12/03/20 12:10 Urine Sodium 57 mmol/L 12/03/20 12:10 Urine Total Protein 8 mg/dL (5-11.8) 12/03/20 12:10 Medications & Allergies - Medications Allergies/Adverse Reactions: Allergies codeine Allergy (Verified 12/02/20 16:31) Hives Home Medications: Home Medications Medication Instructions Recorded Confirmed Last Taken Type Unobtainable 12/04/20 12/04/20 Unknown History Active Medications: Generic Name Dose Route Start Last Admin Trade Name Freq PRN Reason Stop Dose Admin Acetaminophen 650 mg 12/02/20 19:10 Acetaminophen 325 Mg Tab PO Q4H PRN Pain MILD(1-3)/Fever >100.5/RAMIREZ Albuterol 2.5 mg 12/02/20 19:10 Albuterol 2.5 Mg/3 Ml Nebu IH Q4H PRN Shortness Of Breath Heparin Sodium (Porcine) 5,000 unit 12/03/20 22:00 12/03/20 21:34 Heparin 5,000 Unit/1 Ml Vial SUB-Q 5,000 unit Q12HR YOLANDA Administration Sodium Bicarbonate 100 meq/ 1,100 mls @ 100 mls/hr 12/03/20 11:30 12/04/20 06:13 Sterile Water IV 100 mls/hr DIRECT YOLANDA Administration Ondansetron HCl 4 mg 12/02/20 19:10 Ondansetron 4 Mg/2 Ml Inj IV Q8H PRN Nausea And Vomiting Sodium Chloride 10 ml 12/02/20 22:00 12/03/20 21:34 Sodium Chloride 0.9% 10 Ml Flush Syringe IV 10 ml BID YOLANDA Administration Sodium Chloride 10 ml 12/02/20 19:10 Sodium Chloride 0.9% 10 Ml Flush Syringe IV PRN PRN LINE FLUSH
[2020-12-04] MEDS: HEPARIN 5,000 UNIT/1 ML VIAL SUB-Q SCH ×2 (11:08→21:51)
[2020-12-05 05:38] LABS: Calcium 8.9 mg/dL (8.4-10.2)
--- NOTE | 2020-12-05 08:36 | Progress Note ---
Assessment and Plan Assessment and plan: Acute kidney injury It is unclear if he had undiagnosed CKD Nephrology consulted in ED, monitor uop q shift, avoid nephrotoxic agents, Patient evaluated by Nitroglycerin Neutralizer Cr improving now 3.7 from 10.9 on admission Metabolic Acidosis Now resolved. CO2 was 12 on admission Hypotension Monitor BP q shift, continue medical management. IVF resuscitation therapy as clinically indicated. EKG, abnormal remote telemetry monitoring, repeat ekg Hyperkalemia Was given Calcium gluconate, insulin, D50, Kayexalate, Now resolved Repeat BMP in a.m. Diabetes mellitus type 2 Consistent carbohydrate diet, Accu-Chek, hypoglycemia protocol, sliding scale insulin therapy, DVT prophylaxis SCD to bilateral lower extremities while in bed, patient is ambulatory 12/04/20 Patient initially presented with dizziness, generalized weakness. He was diagnosed with acute kidney injury with Cr 10.9 and severe hyperkalemia with Potassium of 8.0. After medical management, he is much better with Cr 3.7 and Potassium now normal at 4.8. Continue iv fluids. Hopefully discharge home in few days. I discussed with Nephrology. 12/05/20 Patient diagnosed with acute kidney injury, hypotension. He has improved considerably. Cr now 2.2 from 10.9 on admission. I discussed with Nephrology. Poss dc home tomorrow. History Interval history: Weakness and diziness, now resolved He feels much better No SOB Hospitalist Physical - Physical exam Narrative exam: Gen: Not in acute distress, lying in bed HEENT: Normochephalic, atraumatic Neck:supple, No JVD Lungs:Clear to auscultation bilaterally, no rales, no wheeze Heart:S1 and S2 reg, no murmurs, rubs or gallop Abd: soft, non tender, non distended, normal bowel sounds Ext: No edema, no clubbing, no cyanosis Neuro:Awake,alert,oriented X 3, moves all ext, no focal neurological signs - Constitutional Vitals: Temp Pulse Resp BP Pulse Ox 97.5 F L 86 18 112/72 95 12/05/20 07:34 12/05/20 07:34 12/05/20 07:34 12/05/20 07:34 12/05/20 07:34 HEART Score - HEART Score Troponin: Troponin T < 0.010 ng/mL (0.00-0.029) 12/02/20 19:12 Results - Labs CBC & Chem 7: 12/04/20 04:19 12/05/20 04:22 Labs: Laboratory Last Values WBC 8.2 K/mm3 (4.5-11.0) 12/04/20 04:19 RBC 4.39 M/mm3 (3.65-5.03) 12/04/20 04:19 Hgb 12.2 gm/dl (11.8-15.2) 12/04/20 04:19 Hct 36.1 % (35.5-45.6) D 12/04/20 04:19 MCV 82 fl (84-94) L 12/04/20 04:19 MCH 28 pg (28-32) 12/04/20 04:19 MCHC 34 % (32-34) 12/04/20 04:19 RDW 14.7 % (13.2-15.2) 12/04/20 04:19 Plt Count 155 K/mm3 (140-440) 12/04/20 04:19 Lymph % (Auto) 13.6 % (13.4-35.0) 12/02/20 16:41 [place] % (Auto) 6.1 % (0.0-7.3) 12/02/20 16:41 Eos % (Auto) 0.2 % (0.0-4.3) 12/02/20 16:41 Baso % (Auto) 0.3 % (0.0-1.8) 12/02/20 16:41 Lymph # (Auto) 1.5 K/mm3 (1.2-5.4) 12/02/20 16:41 [place] # (Auto) 0.7 K/mm3 (0.0-0.8) 12/02/20 16:41 Eos # (Auto) 0.0 K/mm3 (0.0-0.4) 12/02/20 16:41 Baso # (Auto) 0.0 K/mm3 (0.0-0.1) 12/02/20 16:41 Seg Neutrophils % 79.8 % (40.0-70.0) H 12/02/20 16:41 Seg Neutrophils # 8.6 K/mm3 (1.8-7.7) H 12/02/20 16:41 PT 13.8 Sec. (12.2-14.9) 12/02/20 16:41 INR 1.00 (0.87-1.13) 12/02/20 16:41 APTT 26.2 Sec. (24.2-36.6) 12/02/20 17:19 Sodium 145 mmol/L (137-145) 12/05/20 04:22 Potassium 4.5 mmol/L (3.6-5.0) 12/05/20 04:22 Chloride 105.9 mmol/L (98-107) 12/05/20 04:22 Carbon Dioxide 26 mmol/L (22-30) 12/05/20 04:22 Anion Gap 18 mmol/L 12/05/20 04:22 BUN 65 mg/dL (9-20) H 12/05/20 04:22 Creatinine 2.2 mg/dL (0.8-1.3) H 12/05/20 04:22 Estimated GFR 37 ml/min 12/05/20 04:22 BUN/Creatinine Ratio 30 % 12/05/20 04:22 Glucose 92 mg/dL (75-100) 12/05/20 04:22 POC Glucose 92 mg/dL (70-105) 12/04/20 15:55 Calcium 8.9 mg/dL (8.4-10.2) 12/05/20 04:22 Phosphorus 2.90 mg/dL (2.5-4.5) D 12/05/20 04:22 Total Bilirubin 0.30 mg/dL (0.1-1.2) 12/02/20 16:41 AST 10 units/L (5-40) 12/02/20 16:41 ALT 7 units/L (7-56) 12/02/20 16:41 Alkaline Phosphatase 50 units/L (35-129) 12/02/20 16:41 Total Creatine Kinase 50 units/L (55-170) L 12/02/20 16:41 CK-MB (CK-2) 1.7 ng/mL (0.0-4.0) 12/02/20 16:41 CK-MB (CK-2) Rel Index 3.4 (0-4) 12/02/20 16:41 Troponin T < 0.010 ng/mL (0.00-0.029) 12/02/20 19:12 Total Protein 7.9 g/dL (6.3-8.2) 12/02/20 16:41 Albumin 4.3 g/dL (3.9-5) 12/02/20 16:41 Albumin/Globulin Ratio 1.2 % 12/02/20 16:41 TSH 1.980 mlU/mL (0.270-4.200) 12/04/20 12:33 PTH Intact 331.1 pg/mL (15-65) H 12/04/20 04:19 Urine Color Straw (Yellow) 12/03/20 12:10 Urine Turbidity Clear (Clear) 12/03/20 12:10 Urine pH 5.0 (5.0-7.0) 12/03/20 12:10 Ur Specific [place] 1.012 (1.003-1.030) 12/03/20 12:10 Urine Protein <15 mg/dl mg/dL (Negative) 12/03/20 12:10 Urine Glucose (UA) 50 mg/dL (Negative) 12/03/20 12:10 Urine Ketones Neg mg/dL (Negative) 12/03/20 12:10 Urine Blood Sm (Negative) 12/03/20 12:10 Urine Nitrite Neg (Negative) 12/03/20 12:10 Urine Bilirubin Neg (Negative) 12/03/20 12:10 Urine Urobilinogen < 2.0 mg/dL (<2.0) 12/03/20 12:10 Ur Leukocyte Esterase Neg (Negative) 12/03/20 12:10 Urine WBC (Auto) 1.0 /HPF (0.0-6.0) 12/03/20 12:10 Urine RBC (Auto) 1.0 /HPF (0.0-6.0) 12/03/20 12:10 Urine Mucus Few /HPF 12/03/20 12:10 Urine Creatinine 107.2 mg/dL (0.1-20.0) H 12/03/20 12:10 Urine Sodium 57 mmol/L 12/03/20 12:10 Urine Total Protein 8 mg/dL (5-11.8) 12/03/20 12:10 Hep Bs Antigen Non-reactive (Negative) 12/04/20 04:19 Hepatitis C Antibody Non-reactive (NonReactive) 12/04/20 04:19 Blue/IV: Voiding Method Toilet Active Medications - Current Medications Current Medications: Generic Name Dose Route Start Last Admin Trade Name Freq PRN Reason Stop Dose Admin Acetaminophen 650 mg 12/02/20 19:10 Acetaminophen 325 Mg Tab PO Q4H PRN Pain MILD(1-3)/Fever >100.5/RAMIREZ Albuterol 2.5 mg 12/02/20 19:10 Albuterol 2.5 Mg/3 Ml Nebu IH Q4H PRN Shortness Of Breath Colchicine 0.6 mg 12/05/20 10:00 Colchicine 0.6 Mg Tab PO QDAY YOLANDA Heparin Sodium (Porcine) 5,000 unit 12/03/20 22:00 12/04/20 21:51 Heparin 5,000 Unit/1 Ml Vial SUB-Q 5,000 unit Q12HR YOLANDA Administration Sodium Chloride 1,000 mls @ 100 mls/hr 12/05/20 08:30 Nacl 0.9% 1000 Ml IV DIRECT YOLANDA Ondansetron HCl 4 mg 12/02/20 19:10 Ondansetron 4 Mg/2 Ml Inj IV Q8H PRN Nausea And Vomiting Pravastatin Sodium 40 mg 12/05/20 22:00 Pravastatin 40 Mg Tab PO QHS YOLANDA Sodium Chloride 10 ml 12/02/20 22:00 12/04/20 21:51 Sodium Chloride 0.9% 10 Ml Flush Syringe IV 10 ml BID YOLANDA Administration Sodium Chloride 10 ml 12/02/20 19:10 Sodium Chloride 0.9% 10 Ml Flush Syringe IV PRN PRN LINE FLUSH
--- NOTE | 2020-12-05 08:41 | Progress Note ---
Assessment and Plan - Patient Problems (1) Acute renal failure Current Visit: Yes Status: Acute Plan to address problem: Acute kidney injury prerenal azotemia versus acute tubular necrosis secondary to hypotension. It is unclear if patient has baseline chronic kidney disease presumably secondary to hypotension. Patient has not been getting regular medical care due to insurance issues. Kidney indices are improving. Hopefully kidney function keeps improving with current treatment so patient can be discharged tomorrow from renal standpoint. Follow-up electrolytes and renal function. I discussed with the patient and he agrees with this plan (2) Hyperkalemia Current Visit: Yes Status: Acute Plan to address problem: Resolved with aggressive medical management of hyperkalemia (3) Hypotension Current Visit: Yes Status: Acute Plan to address problem: SHOBHA inhibitor was stopped more than a week prior to hospitalization. Blood pressure was still low on presentation. TSH was normal. Continue volume repletion. Follow-up 2D echo. Follow-up cortisol level. Further management depending on the course. (4) Metabolic acidosis Current Visit: Yes Status: Acute Plan to address problem: Uremic acidosis. Resolved with bicarb infusion. (5) Type 2 diabetes mellitus Current Visit: Yes Status: Acute Plan to address problem: Blood sugar management by primary attending. Subjective Date of service: 12/05/20 Principal diagnosis: Acute kidney injury, hyperkalemia, metabolic acidosis Interval history: Patient seen lying in bed. He has no complaints this morning. No chest pain, shortness of breath, nausea or vomiting. Objective - Exam Narrative Exam: Middle-aged -Tajik male lying in bed in no acute distress HEENT: NCAT, Neck: Supple, no venous distention CVS: S1S2 RRR with no murmur, rub or gallop Chest: Clear to auscultation Abdomen: Protuberant, soft, nontender, no organomegaly, bowel sounds are present Extremities: No edema Genitourinary deferred Skin warm and dry Neuro: Awake, alert no focal deficits - Vital Signs Vital signs: Vital Signs - 12hr 12/05/20 12/05/20 12/05/20 00:07 03:41 07:34 Temperature 98.0 F 98.4 F 97.5 F L Pulse Rate 96 H 102 H 86 Respiratory 18 18 18 Rate Blood Pressure 102/72 110/66 112/72 O2 Sat by Pulse 95 95 95 Oximetry - Lab 12/04/20 04:19 12/05/20 04:22 Most recent lab results Calcium 8.9 mg/dL (8.4-10.2) 12/05/20 04:22 Phosphorus 2.90 mg/dL (2.5-4.5) D 12/05/20 04:22 Urine Creatinine 107.2 mg/dL (0.1-20.0) H 12/03/20 12:10 Urine Sodium 57 mmol/L 12/03/20 12:10 Urine Total Protein 8 mg/dL (5-11.8) 12/03/20 12:10 Medications & Allergies - Medications Allergies/Adverse Reactions: Allergies codeine Allergy (Verified 12/02/20 16:31) Hives Home Medications: Home Medications Medication Instructions Recorded Confirmed Last Taken Type Colchicine [Colcrys] 0.6 mg PO DAILY 12/05/20 12/05/20 12/03/20 09:45 History Simvastatin 20 mg PO QHS 12/05/20 12/05/20 12/03/20 History Active Medications: Generic Name Dose Route Start Last Admin Trade Name Freq PRN Reason Stop Dose Admin Acetaminophen 650 mg 12/02/20 19:10 Acetaminophen 325 Mg Tab PO Q4H PRN Pain MILD(1-3)/Fever >100.5/RAMIREZ Albuterol 2.5 mg 12/02/20 19:10 Albuterol 2.5 Mg/3 Ml Nebu IH Q4H PRN Shortness Of Breath Colchicine 0.6 mg 12/05/20 10:00 Colchicine 0.6 Mg Tab PO QDAY YOLANDA Heparin Sodium (Porcine) 5,000 unit 12/03/20 22:00 12/04/20 21:51 Heparin 5,000 Unit/1 Ml Vial SUB-Q 5,000 unit Q12HR YOLANDA Administration Sodium Chloride 1,000 mls @ 100 mls/hr 12/05/20 08:30 Nacl 0.9% 1000 Ml IV DIRECT YOLANDA Ondansetron HCl 4 mg 12/02/20 19:10 Ondansetron 4 Mg/2 Ml Inj IV Q8H PRN Nausea And Vomiting Pravastatin Sodium 40 mg 12/05/20 22:00 Pravastatin 40 Mg Tab PO QHS YOLANDA Sodium Chloride 10 ml 12/02/20 22:00 12/04/20 21:51 Sodium Chloride 0.9% 10 Ml Flush Syringe IV 10 ml BID YOLANDA Administration Sodium Chloride 10 ml 12/02/20 19:10 Sodium Chloride 0.9% 10 Ml Flush Syringe IV PRN PRN LINE FLUSH
[2020-12-05] MEDS: COLCHICINE 0.6 MG TAB PO SCH (09:24)
[2020-12-05] MEDS: HEPARIN 5,000 UNIT/1 ML VIAL SUB-Q SCH ×2 (09:24→22:18)
[2020-12-05] MEDS: SODIUM CHLORIDE 0.9% 1000 ML 1,000 ML IV SCH ×2 (09:26→20:27)
[2020-12-05] MEDS ORDERED: PRAVASTATIN 40 MG TAB PO SCH (22:00)
[2020-12-06 06:06] LABS: Calcium 7.6 mg/dL (8.4-10.2)
[2020-12-06 09:00] VITALS: BP 119/75
--- NOTE | 2020-12-06 10:00 | Consultation ---
History of Present Illness Consult date: 12/06/20 Consult reason: other (Cardiomyopathy) History of present illness: Patient is a 60-year-old man with a history of hypertension and diabetes, admitted 4 days ago with profound dehydration, acute renal failure and hypotension. On his presentation here, BUN was 177, creatinine 10.9, bicarb was 8, and potassium was 8. Blood pressure was 75/48. He had apparently been feeling unwell for several weeks prior to his presentation. With hydration and optimal medical therapy, his acidosis, dehydration and acute renal failure are resolving. His blood pressure has also normalized. Cardiology consultation is requested for abnormal finding on an echocardiogram done during this hospitalization. Echocardiogram showed a mild decrease in left ventricular systolic function with ejection fraction 40 to 45%. Otherwise, there were no significant valvular abnormalities. Patient reports no significant prior cardiac history, and reports no chest pain, no shortness of breath, no lower extremity edema, no palpitations. EKG on presentation was a mild sinus tachycardia, otherwise normal ECG with no ST or T wave abnormalities. 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 denies: smoking, alcohol abuse, prescription drug abuse Family history: cancer (Father of lung cancer age 53.), diabetes, hypertension, other (Mother had multiple sclerosis and at age 41.) Medications and Allergies Allergies Allergy/AdvReac Type Severity Reaction Status Date / Time codeine Allergy Hives Verified 12/02/20 16:31 Home Medications Medication Instructions Recorded Confirmed Last Taken Type Colchicine [Colcrys] 0.6 mg PO DAILY 12/05/20 12/05/20 12/03/20 09:45 History Simvastatin 20 mg PO QHS 12/05/20 12/05/20 12/03/20 History Active Meds: Active Medications Acetaminophen (Acetaminophen 325 Mg Tab) 650 mg PO Q4H PRN PRN Reason: Pain MILD(1-3)/Fever >100.5/RAMIREZ Albuterol (Albuterol 2.5 Mg/3 Ml Nebu) 2.5 mg IH Q4H PRN PRN Reason: Shortness Of Breath Colchicine (Colchicine 0.6 Mg Tab) 0.6 mg PO QDAY YOLANDA Last Admin: 12/05/20 09:24 Dose: 0.6 mg Documented by: Heparin Sodium (Porcine) (Heparin 5,000 Unit/1 Ml Vial) 5,000 unit SUB-Q Q12HR [facility] Last Admin: 12/05/20 22:18 Dose: 5,000 unit Documented by: Sodium Chloride (Nacl 0.9% 1000 Ml) 1,000 mls @ 100 mls/hr IV DIRECT [facility] Last Admin: 12/05/20 20:27 Dose: 100 mls/hr Documented by: Ondansetron HCl (Ondansetron 4 Mg/2 Ml Inj) 4 mg IV Q8H PRN PRN Reason: Nausea And Vomiting Pravastatin Sodium (Pravastatin 40 Mg Tab) 40 mg PO QHS [facility] Last Admin: 12/05/20 22:18 Dose: 40 mg Documented by: Sodium Chloride (Sodium Chloride 0.9% 10 Ml Flush Syringe) 10 ml IV BID [facility] Last Admin: 12/05/20 09:26 Dose: 10 ml Documented by: Sodium Chloride (Sodium Chloride 0.9% 10 Ml Flush Syringe) 10 ml IV PRN PRN PRN Reason: LINE FLUSH Review of Systems Cardiovascular: lightheadedness, no chest pain, no orthopnea, no palpitations, no rapid/irregular heart beat, no edema, no syncope, no shortness of breath Physical Examination Vital Signs Temp Pulse Resp BP Pulse Ox 97.9 F 122 H 12 75/48 95 12/02/20 16:33 12/02/20 16:33 12/02/20 16:33 12/02/20 16:33 12/02/20 16:33 General appearance: no acute distress HEENT: Positive: PERRL Neck: Positive: neck supple Cardiac: Positive: Reg Rate and Rhythm Lungs: Positive: clear to auscultation Neuro: Positive: Grossly Intact Abdomen: Positive: Soft Male genitourinary: Positive: deferred Skin: Positive: Clear Extremities: Absent: edema Results 12/04/20 04:19 12/06/20 04:44 Comprehensive Metabolic Panel 12/06/20 Range/Units 04:44 Sodium 141 (137-145) mmol/L Potassium 4.6 (3.6-5.0) mmol/L Chloride 107.0 (98-107) mmol/L Carbon Dioxide 23 (22-30) mmol/L BUN 37 H (9-20) mg/dL Creatinine 1.9 H (0.8-1.3) mg/dL Glucose 106 H (75-100) mg/dL Calcium 7.6 L (8.4-10.2) mg/dL EKG interpretations - Telemetry EKG Rhythm: Sinus Tachycardia Assessment and Plan - Patient Problems (1) Cardiomyopathy Current Visit: Yes Status: Acute Plan to address problem: Patient admitted with acute renal failure, severe dehydration and prerenal azotemia. He feels much better following rehydration and resolution of acute kidney injury. Incidental finding on echocardiogram of a mild cardiomyopathy. Patient has no cardiac symptoms, and chronicity of the myopathy is uncertain. He is not a candidate for afterload therapy with SHOBHA inhibitor or ARB at this time due to acute kidney injury and presenting hypotension. We will start carvedilol at low doses, and recommend outpatient cardiac follow- up for repeat echocardiogram and noninvasive ischemia assessment as indicated.
[2020-12-06] MEDS: COLCHICINE 0.6 MG TAB PO SCH (10:54)
[2020-12-06] MEDS: HEPARIN 5,000 UNIT/1 ML VIAL SUB-Q SCH (10:54)
[2020-12-06] MEDS ORDERED: carvediloL 3.125 MG TAB PO SCH (11:00)
--- NOTE | 2020-12-06 11:04 | Progress Note ---
Assessment and Plan - Patient Problems (1) Acute renal failure Current Visit: Yes Status: Acute Plan to address problem: Acute kidney injury prerenal azotemia versus acute tubular necrosis secondary to hypotension. It is unclear if patient has baseline chronic kidney disease presumably secondary to hypotension. Patient has not been getting regular medical care due to insurance issues. Kidney function continues to improve. Patient can be discharged home from renal standpoint. Follow-up electrolytes and renal function in the office in 1 week. I discussed with the patient and he agrees with this plan. I also discussed with primary attending (2) Hyperkalemia Current Visit: Yes Status: Acute Plan to address problem: Resolved with aggressive medical management of hyperkalemia (3) Hypotension Current Visit: Yes Status: Acute Plan to address problem: SHOBHA inhibitor was stopped more than a week prior to hospitalization. Blood pressure was still low on presentation. TSH was normal. 2D echo showed EF of 40 to 45%. Started on low-dose carvedilol per tractor expert. He will follow-up with tractor expert as an outpatient also (4) Metabolic acidosis Current Visit: Yes Status: Acute Plan to address problem: Uremic acidosis. Resolved with bicarb infusion. (5) Type 2 diabetes mellitus Current Visit: Yes Status: Acute Plan to address problem: Blood sugar management by primary attending. Subjective Date of service: 12/06/20 Principal diagnosis: Acute kidney injury, hyperkalemia, metabolic acidosis Interval history: Patient seen lying in bed. He has no complaints this morning. No chest pain, shortness of breath, nausea or vomiting. 2D echo reportreviewed with EF of 40 to 45% Objective - Exam Narrative Exam: Middle-aged -Vincentian male lying in bed in no acute distress HEENT: NCAT, Neck: Supple, no venous distention CVS: S1S2 RRR with no murmur, rub or gallop Chest: Clear to auscultation Abdomen: Protuberant, soft, nontender, no organomegaly, bowel sounds are present Extremities: No edema Genitourinary deferred Skin warm and dry Neuro: Awake, alert no focal deficits - Vital Signs Vital signs: Vital Signs - 12hr 12/06/20 12/06/20 12/06/20 00:00 00:34 02:00 Temperature 98.4 F Pulse Rate 76 78 Pulse Rate [ 111 H Throughout] Respiratory 18 Rate Respiratory 15 Rate [ Throughout] Blood Pressure 121/76 O2 Sat by Pulse 96 Oximetry 12/06/20 12/06/20 12/06/20 03:29 07:38 08:49 Temperature 98.0 F 97.7 F Pulse Rate 78 73 78 Pulse Rate [ Throughout] Respiratory 18 18 Rate Respiratory Rate [ Throughout] Blood Pressure 115/71 119/75 O2 Sat by Pulse 98 100 Oximetry - Lab 12/04/20 04:19 12/06/20 04:44 Most recent lab results Calcium 7.6 mg/dL (8.4-10.2) L 12/06/20 04:44 Phosphorus 2.90 mg/dL (2.5-4.5) D 12/05/20 04:22 Urine Creatinine 107.2 mg/dL (0.1-20.0) H 12/03/20 12:10 Urine Sodium 57 mmol/L 12/03/20 12:10 Urine Total Protein 8 mg/dL (5-11.8) 12/03/20 12:10 Medications & Allergies - Medications Allergies/Adverse Reactions: Allergies codeine Allergy (Verified 12/02/20 16:31) Hives Home Medications: Home Medications Medication Instructions Recorded Confirmed Last Taken Type Colchicine [Colcrys] 0.6 mg PO DAILY 12/05/20 12/05/20 12/03/20 09:45 History Simvastatin 20 mg PO QHS 12/05/20 12/05/20 12/03/20 History lisinopriL [Lisinopril] 40 mg PO DAILY 12/06/20 12/06/20 Unknown History Active Medications: Generic Name Dose Route Start Last Admin Trade Name Freq PRN Reason Stop Dose Admin Acetaminophen 650 mg 12/02/20 19:10 Acetaminophen 325 Mg Tab PO Q4H PRN Pain MILD(1-3)/Fever >100.5/RAMIREZ Albuterol 2.5 mg 12/02/20 19:10 Albuterol 2.5 Mg/3 Ml Nebu IH Q4H PRN Shortness Of Breath Carvedilol 3.125 mg 12/06/20 11:00 Carvedilol 3.125 Mg Tab PO BID YOLANDA Colchicine 0.6 mg 12/05/20 10:00 12/06/20 10:54 Colchicine 0.6 Mg Tab PO 0.6 mg QDAY YOLANDA Administration Heparin Sodium (Porcine) 5,000 unit 12/03/20 22:00 12/06/20 10:54 Heparin 5,000 Unit/1 Ml Vial SUB-Q Not Given Q12HR YOLANDA Sodium Chloride 1,000 mls @ 100 mls/hr 12/05/20 08:30 12/05/20 20:27 Nacl 0.9% 1000 Ml IV 100 mls/hr DIRECT YOLANDA Administration Ondansetron HCl 4 mg 12/02/20 19:10 Ondansetron 4 Mg/2 Ml Inj IV Q8H PRN Nausea And Vomiting Pravastatin Sodium 40 mg 12/05/20 22:00 12/05/20 22:18 Pravastatin 40 Mg Tab PO 40 mg QHS YOLANDA Administration Sodium Chloride 10 ml 12/02/20 22:00 12/06/20 10:54 Sodium Chloride 0.9% 10 Ml Flush Syringe IV 10 ml BID YOLANDA Administration Sodium Chloride 10 ml 12/02/20 19:10 Sodium Chloride 0.9% 10 Ml Flush Syringe IV PRN PRN LINE FLUSH
--- NOTE | 2020-12-06 11:21 | Discharge Summary ---
Providers - Providers Date of Admission: 12/02/20 19:10 Date of discharge: 12/06/20 Attending physician: ANIYA ELLISON 12/02/20 19:00 Consult to Physician [CONS] Stat Comment: Consulting Provider: JUAN M NAYAK Physician Instructions: Reason For Exam: renal failure 12/06/20 08:23 Consult to Physician [CONS] Routine Comment: Consulting Provider: DENILSON MENDOZA Physician Instructions: Reason For Exam: EF 40% Primary care physician: TECHNICAL MAINTENANCE SPECIALIST Hospitalization Condition: Fair Hospital course: 60 YO Male with HTN, DM, Gout presents to ED for evaluation. Patient reports "I feel weak and dizzy". Patient states that he has experienced generalized weakness, dizziness over the past 2 weeks with intermittently worsening symptoms over the same timeframe. Patient was seen and evaluated by his primary care physician last week and was found to have hypotension. Patient acknowledges persistent symptoms after discontinuing antihypertensive medication. Patient transported to [facility] via private vehicle for further care and evaluation of the aforementioned symptoms. The patient was seen and evaluated in the emergency department. All lab and imaging studies reviewed. Patient found to have hypotension with a blood pressure of 75/48 in the emergency department. Patient also found to have end-stage renal disease, metabolic acidosis, as well as EKG changes secondary to hyperkalemia. Patient admitted to telemetry for further evaluation and monitoring. Nephrology team consulted in ED. He was admitted, evaluated by Nephrology. On iv fluids his Creatinine improved markedly and was down to 1.9 after 4 days so was discharged home. Echo revealed EF 40%, therefore he was evaluated by Dr. Mendoza, Cardiology. He was started on Coreg. To follow as outpatient. Not put on SHOBHA/ARB because of LILLIAN. Acute kidney injury It is unclear if he had undiagnosed CKD Nephrology consulted in ED, monitor uop q shift, avoid nephrotoxic agents, Patient evaluated by Sustainability Consultant Cr improving now 3.7 from 10.9 on admission Metabolic Acidosis Now resolved. CO2 was 12 on admission Hypotension Monitor BP q shift, continue medical management. IVF resuscitation therapy as clinically indicated. EKG, abnormal remote telemetry monitoring, repeat ekg Hyperkalemia Was given Calcium gluconate, insulin, D50, Kayexalate, Now resolved Repeat BMP in a.m. Diabetes mellitus type 2 Consistent carbohydrate diet, Accu-Chek, hypoglycemia protocol, sliding scale insulin therapy, DVT prophylaxis SCD to bilateral lower extremities while in bed, patient is ambulatory 12/04/20 Patient initially presented with dizziness, generalized weakness. He was diagnosed with acute kidney injury with Cr 10.9 and severe hyperkalemia with Potassium of 8.0. After medical management, he is much better with Cr 3.7 and Potassium now normal at 4.8. Continue iv fluids. Hopefully discharge home in few days. I discussed with Nephrology. 12/05/20 Patient diagnosed with acute kidney injury, hypotension. He has improved considerably. Cr now 2.2 from 10.9 on admission. I discussed with Nephrology. Poss dc home tomorrow. 12/06/20 Patient with acute kidney injury. Much improved. Creatinine now 1.9. Stable to discharge home and follow with Nephrology as outpatient. Disposition: DC01 TO HOME OR SELFCARE Final Discharge Diagnosis (Prints w/discharge instructions): 1.LILLIAN. 2.Hyperkalemia. 3.Cardiomyopathy - Discharge Diagnoses (1) Acidosis Status: Acute (2) Acute renal failure Status: Acute (3) Cardiomyopathy Status: Acute (4) Hyperkalemia Status: Acute (5) Type 2 diabetes mellitus Status: Acute Core Measure Documentation - Palliative Care Palliative Care/ Comfort Measures: Not Applicable - Core Measures Any of the following diagnoses?: none Exam - Constitutional Vitals: Temp Pulse Resp BP Pulse Ox 97.7 F 78 18 119/75 100 12/06/20 07:38 12/06/20 08:49 12/06/20 07:38 12/06/20 07:38 12/06/20 07:38 Plan Activity: advance as tolerated Diet: low fat, low cholesterol, low salt Special Instructions: other (1.Follow up with Dr. Cabezas, Nephrology in 1 week. 2.Follow up with Dr. Mendoza, Cardiology in 1 week) Plan of Treatment: 1.Follow up with PCP in 1 week. 2.Follow up with Dr. Cabezas, Nephrology in 1 week 3.Follow up with Dr. Mendoza, Cardiology in 1 week Follow up with: PRIMARY CARE, [Primary Care Provider] - 3-5 Days Prescriptions: carvediloL [Coreg] 3.125 mg PO BID #60 tablet
--- NOTE | 2020-12-06 18:35 | Electrocardiograph Report ---
[facility] Test Date: 2020-12-02 Test Time: 16:35:07 Pat Name: EARLENE RODRIGUEZLAUREN LORENZ Department: Room: A463 1 Gender: M Veneer Sawyer: UZIEL : 1960 Requested By: BINU RODRIGUEZ Order Number: [id number] Reading MD: Nathan Nice Measurements Intervals [place] Rate: 106 P: 82 W[place]: 172 QRS: 82 QRSD: 102 T: 49 QT: 301 QTc: 399 Interpretive Statements Sinus tachycardia Borderline ST elevation, anterior leads No previous ECG available for comparison Electronically Signed On 12-06-2020 18:35:02 EDT by Nathan Nice
== END 2020-12-06 15:25 | disposition home or self-care (01) | DRG 683 ==
LOC: ED 16:11 → 4A 19:10
PROVIDERS: ADMIT Internal Medicine; ATTEND Internal Medicine
DX: N17.0 Acute kidney failure with tubular necrosis (principal); E87.2 Acidosis; I42.9 Cardiomyopathy, unspecified; I95.9 Hypotension, unspecified; E87.5 Hyperkalemia; Z88.6 Allergy status to analgesic agent; M10.9 Gout, unspecified; E11.22 Type 2 diabetes mellitus with diabetic chronic kidney disease; N18.6 End stage renal disease; Z83.3 Family history of diabetes mellitus; Z82.49 Family history of ischemic heart disease and other diseases of the circulatory system; E86.0 Dehydration; I10 Essential (primary) hypertension
CPT/HCPCS: 36415; 71045; 76770; 80048; 80053; 81001; 82533; 82550; 82553; 82570; 82962; 83970; 84100; 84132; 84156; 84300; 84443; 84484; 85025; 85027; 85610; 85730; 86706; 86803; 93005; 93306; 94644; 96365; 96367; 96375; G0378; A9270-GY; J0610; J1644; J1815; J7030; J7070